=== PATIENT | male | born 1970 | race Caucasian/White ===

== ENCOUNTER 2022-10-12 16:57 | Outpatient (CLI) | payer OTHER, SELFPAY ==
[2022-10-13 12:36] LABS: Basophils Absolute Auto 0.1 K/mm3 (0.0-0.1); Basophils Percent Auto 0.9 % (0.2-1.2); Eosinophils Absolute Auto 0.3 K/mm3 (0-0.3); Eosinophils Percent Auto 3.4 % (0-4.4); Hematocrit 43.8 % (42.0-52.0); Hemoglobin 14.8 g/dL (14.0-18.0); Immature Granulocyte Absolute 0.03 K/mm3 (0.00-0.031); Immature Granulocyte Percent A 0.3 % (0-0.5); Lymphocytes Absolute Auto 2.12 K/mm3 (0.9-3.2); Lymphocytes Percent Auto 21.3 % (18.3-44.2); Mean Corpuscular HGB Conc 33.8 g/dl (32-36); Mean Corpuscular Volume 100.7 fl (80-100); Monocytes Absolute Auto 0.7 K/mm3 (0.1-0.6); Monocytes Percent Auto 7.5 % (2.6-8.5); Neutrophils Absolute Auto 6.6 K/mm3 (1.3-6.7); Neutrophils Percent Auto 66.6 % (45.5-73.1); Platelet Count Result 304 k/mm3 (150-375); Red Blood Count 4.35 M/mm3 (4.6-6.20); Red Cell Distribution Width 12.6 % (11.5-14.5); White Blood Count 9.9 K/mm3 (4.5-10.0)
[2022-10-13 12:37] LABS: Vitamin D 25 Hydroxy 21.3 ng/mL
[2022-10-13 12:38] LABS: Alanine Aminotransferase 31 U/L (6-50); Albumin Level 4.3 g/dL (3.5-5.1); Alkaline Phosphatase 94 U/L (38-126); Anion Gap 9 mmol/L (8-16); Aspartate Amino Transferase 29 U/L (17-59); Bilirubin,Total 0.7 mg/dL (0.2-1.3); Blood Urea Nitrogen 14 mg/dL (9-20); Calcium 8.9 mg/dL (8.4-10.2); Carbon Dioxide 24 mmol/L (22-30); Chloride 103 mmol/L (98-107); Cholesterol 181 mg/dL (0-200); Estimated Glomerular Filt Rate > 60; Glucose 90 mg/dL (65-110); HDL Direct 32 mg/dL; LDL Cholesterol Direct 110 mg/dL; Magnesium 2.4 mg/dL (1.6-2.3); Potassium 4.1 mmol/L (3.4-5.0); Prostate Specific Antigen 0.7 ng/mL (< OR = 4.0); Sodium 136 mmol/L (137-145); Triglycerides 209 mg/dL (<150); Uric Acid 6.7 mg/dL (3.5-8.5)
[2022-10-14 01:46] LABS: Appearance Urine Clear (Clear); Bilirubin Urine Negative (Negative); Blood Urine Negative (Negative); Color Urine Yellow (Yellow); Glucose Urine UA Negative (Negative); Ketones Urine Negative (Negative); Leukocyte Esterase Ur Negative LEU/UL (Negative); Nitrate Urine Negative (Negative); Protein Urine Negative (Negative); Specific Grav Ur 1.019 (1.001-1.035); Urobilinogen Urine 0.2 mg/dL (<2.0)
[2022-10-14 01:55] LABS: Add Urine Microscopic? NO
== END 2022-10-12 16:58 | disposition home or self-care (01) ==
LOC: ANHLAB 17:08
PROVIDERS: PCP Family Medicine; Visit Provider Family Medicine
DX: Z00.00 Encounter for general adult medical examination without abnormal findings (principal); E66.9 Obesity, unspecified; M79.672 Pain in left foot; Z13.9 Encounter for screening, unspecified
CPT/HCPCS: 36415; 80053; 80061; 81003; 82306; 82746; 83735; 84153; 84443; 84550; 85025

== ENCOUNTER 2022-12-21 09:36 | Outpatient (CLI) | payer OTHER, SELFPAY ==
--- NOTE | 2022-12-21 10:30 | NEURO_ITS ---
Impression: # Complains of numbness of feet. No history of back surgery or diabetes. # Normal Nerve Conduction Study. # Normal needle/EMG. # Clinical correlation recommended; could be related to small fiber neuropathy or higher involvement. Nerve Conduction Studies Anti Sensory Summary Table Stim Site NR Peak (ms) P-T Amp (?V) Site1 Site2 Delta-P (ms) Dist (cm) Mike (m/s) Left Sup Fibular Anti Sensory (Ant Lat Mall) 3.3 6.5 48 Right Sup Fibular Anti Sensory (Ant Lat Mall) 3.3 21.0 48 Left Sural Anti Sensory (Lat Mall) 3.6 10.3 44 Right Sural Anti Sensory (Lat Mall) 3.5 16.2 46 Motor Summary Table Stim Site NR Onset (ms) O-P Amp (mV) Site1 Site2 Delta-0 (ms) Dist (cm) Mike (m/s) Left Peroneal Motor (Vastus Med) 3.9 1.3 Knee Ankle 7.9 44 44 13.8 1.1 Right Peroneal Motor (Vastus Med) 3.8 1.4 Knee Ankle 8.7 44 46 13.6 0.8 Left Tibial Motor (Abd Bland Brev) Ankle 4.1 3.7 Knee Ankle 9.9 47.0 47 Knee 14.0 1.7 Right Tibial Motor (Abd Bland Brev) Ankle 4.2 1.7 Knee Ankle 11.0 48.0 44 Knee 15.2 2.1 F Wave Studies NR F-Lat (ms) L-R F-Lat (ms) Left Peroneal (Mrkrs) (EDB) 58.48 0.59 Right Peroneal (Mrkrs) (EDB) 59.06 0.59 Left Tibial (Mrkrs) (Abd Hallucis) 59.38 1.07 Right Tibial (Mrkrs) (Abd Hallucis) 60.45 1.07 EMG Side Muscle Nerve Root Ins Act Fibs Amp Dur Recrt Comment Right AntTibialis Dp Br Fibular L4-5 Nml Nml Nml Nml Nml Right Gastroc Tibial S1-2 Nml Nml Nml Nml Nml Right Fibularis Long Sup Br Fibular L5-S1 Nml Nml Nml Nml Nml Right Flex Dig Long Tibial L5-S2 Nml Nml Nml Nml Nml Right Ext Dig Brev Dp Br Fibular L5, S1 Nml Nml Nml Nml Nml Left AntTibialis Dp Br Fibular L4-5 Nml Nml Nml Nml Nml Left Gastroc Tibial S1-2 Nml Nml Nml Nml Nml Left Fibularis Long Sup Br Fibular L5-S1 Nml Nml Nml Nml Nml Left Flex Dig Long Tibial L5-S2 Nml Nml Nml Nml Nml Left Ext Dig Brev Dp Br Fibular L5, S1 Nml Nml Nml Nml Nml MTDD
== END 2022-12-21 09:37 | disposition home or self-care (01) ==
LOC: ANHNEURO 09:36
PROVIDERS: Visit Provider Podiatrist Foot & Ankle Surgery
DX: G62.1 Alcoholic polyneuropathy (principal)
CPT/HCPCS: 95886; 95910

== ENCOUNTER 2023-03-27 08:13 | Outpatient (CLI) | payer OTHER, SELFPAY ==
[2023-03-27 09:19] LABS: Cholesterol 179 mg/dL (0-200); HDL Direct 32 mg/dL; Triglycerides 152 mg/dL (<150)
[2023-03-27 09:32] LABS: LDL Cholesterol Direct 109 mg/dL
== END 2023-03-27 08:14 | disposition home or self-care (01) ==
LOC: ANHLAB 08:15
PROVIDERS: Visit Provider Family Medicine
DX: E78.2 Mixed hyperlipidemia (principal)
CPT/HCPCS: 36415; 80061

== ENCOUNTER 2023-11-16 12:08 | Outpatient (CLI) | payer OTHER, SELFPAY ==
[2023-11-16 13:12] LABS: Basophils Absolute Auto 0.1 K/mm3 (0.0-0.1); Eosinophils Absolute Auto 0.4 K/mm3 (0-0.3); Eosinophils Percent Auto 3.1 % (0-4.4); Hematocrit 44.8 % (42.0-52.0); Hemoglobin 14.8 g/dL (14.0-18.0); Immature Granulocyte Absolute 0.05 K/mm3 (0.00-0.031); Immature Granulocyte Percent A 0.4 % (0-0.5); Lymphocytes Absolute Auto 2.69 K/mm3 (0.9-3.2); Lymphocytes Percent Auto 21.7 % (18.3-44.2); Mean Corpuscular Hemoglobin 33.9 pg (26-34); Mean Corpuscular Volume 102.8 fl (80-100); Mean Platelet Volume 10.2 fl (7.4-10.4); Monocytes Absolute Auto 0.9 K/mm3 (0.1-0.6); Monocytes Percent Auto 7.1 % (2.6-8.5); Neutrophils Absolute Auto 8.3 K/mm3 (1.3-6.7); Neutrophils Percent Auto 66.7 % (45.5-73.1); Platelet Count Result 348 k/mm3 (150-375); Red Blood Count 4.36 M/mm3 (4.6-6.20); Red Cell Distribution Width 12.7 % (11.5-14.5); White Blood Count 12.4 K/mm3 (4.5-10.0)
[2023-11-16 13:30] LABS: Alanine Aminotransferase 25 U/L (6-50); Albumin Level 4.7 g/dL (3.5-5.1); Alkaline Phosphatase 66 U/L (38-126); Anion Gap 9 mmol/L (4-12); Aspartate Amino Transferase 32 U/L (17-59); Bilirubin,Total 0.7 mg/dL (0.2-1.3); Blood Urea Nitrogen 14 mg/dL (9-20); Calcium 9.4 mg/dL (8.4-10.2); Carbon Dioxide 27 mmol/L (22-30); Chloride 102 mmol/L (98-107); Estimated Glomerular Filt Rate > 60; Glucose 82 mg/dL (65-110); Potassium 3.9 mmol/L (3.4-5.0); Sodium 138 mmol/L (137-145)
[2023-11-16 13:36] LABS: Hemoglobin A1C 5.9 % (<5.7)
[2023-11-16 13:51] LABS: Vitamin D 25 Hydroxy 46.4 ng/mL
[2023-11-16 14:41] LABS: Folic Acid > 20.0 ng/mL (2.76->20)
== END 2023-11-16 12:09 | disposition home or self-care (01) ==
LOC: ANHLAB 12:10
PROVIDERS: PCP Family Medicine; Visit Provider Family Medicine
DX: Z00.00 Encounter for general adult medical examination without abnormal findings (principal); R20.2 Paresthesia of skin; E55.9 Vitamin D deficiency, unspecified; E66.9 Obesity, unspecified
CPT/HCPCS: 36415; 80053; 82306; 82607; 82746; 83036; 83735; 84153; 84443; 85025